=== PATIENT | female | born 1955 | race Asian ===

== ENCOUNTER 2021-06-03 12:17 | Inpatient (IN) | payer OTHER ==
[~2021-06-03] VITALS: Ht 162.6 cm; Wt 61.2 kg
[2021-06-03 12:21] VITALS: BP 114/66
--- NOTE | 2021-06-03 13:31 | NUR ---
LEVEL 2 TRAUMA ACTIVATED
[2021-06-03 14:40] LABS: ABSOLUTE NEUTROPHILS 6.4 thou/uL (1.4-8.2); BASOPHILS 0.8 % (0.0-2.0); HEMATOCRIT 41.1 % (37.0-47.0); HEMOGLOBIN 13.6 gm/dL (12.0-15.0); LYMPHOCYTES 19.9 % (24.0-44.0); MCH 28.3 pg (26.0-34.0); MCHC 33.1 g/dL (28.0-37.0); MCV 85.3 fL (80.0-100.0); MONOCYTES 5.3 % (1.0-8.0); PLATELET COUNT 311 thou/uL (150-400); RBC 4.82 mil/uL (4.20-5.00); RDW 13.2 % (10.5-14.5); WBC 8.8 thou/uL (4.0-11.0)
[2021-06-03 14:47] LABS: CALCIUM 9.2 mg/dL (8.5-10.1); CREATININE 0.6 mg/dL (0.6-1.0); POTASSIUM 3.9 mmol/L (3.5-5.1)
[2021-06-03 16:08] VITALS: BP 132/50
[2021-06-03] MEDS ORDERED: VITAMIN D325 MC2 PO (16:53)
[2021-06-03] MEDS ORDERED: TYLENOL325 MG PO (16:53)
[2021-06-03] MEDS ORDERED: MIRALAX17 GM PO (16:53)
[2021-06-03 17:14] LABS: FOLIC ACID 7.8 ng/mL (8.6-58.9)
== END 2021-06-03 17:15 | disposition home or self-care (01) | DRG 552 ==
LOC: ER 12:17 → EROBS 14:57
PROVIDERS: Nurse Practitioner; ADMIT Hospitalist; ATTEND Hospitalist
DX: S22.079A Unspecified fracture of T9-T10 vertebra, initial encounter for closed fracture (principal); F17.210 Nicotine dependence, cigarettes, uncomplicated; M85.80 Other specified disorders of bone density and structure, unspecified site; Z20.822 Contact with and (suspected) exposure to COVID-19; M81.0 Age-related osteoporosis without current pathological fracture; W01.0XXA Fall on same level from slipping, tripping and stumbling without subsequent striking against object, initial encounter; Y93.89 Activity, other specified; Y92.89 Other specified places as the place of occurrence of the external cause; Y99.8 Other external cause status